=== PATIENT | male | born 1960 | race Caucasian/White ===

== ENCOUNTER → 2016-10-31 | Outpatient (CLI) | payer OTHER ==
[2015-06-27 20:22] VITALS: BP 140/98
== END ==
LOC: LAB 16:23
DX: M79.605 Pain in left leg (principal)

== ENCOUNTER → 2016-11-03 | Outpatient (CLI) | payer OTHER ==
[2015-06-27 20:22] VITALS: BP 140/98
== END ==
LOC: RAD 10:22
DX: M79.605 Pain in left leg (principal)

== ENCOUNTER → 2016-11-06 | Outpatient (CLI) | payer OTHER ==
[2015-06-27 20:22] VITALS: BP 140/98
== END ==
LOC: RAD 09:10
DX: K40.90 Unilateral inguinal hernia, without obstruction or gangrene, not specified as recurrent (principal)
CPT/HCPCS: Q9967

== ENCOUNTER 2017-04-06 08:24 | Emergency (ER) | payer OTHER ==
[~2017-04-06] VITALS: Ht 172.7 cm; Wt 118.6 kg
[2017-04-06] MEDS ORDERED: CHONDROITIN SU250 M1 (08:38)
[2017-04-06] MEDS ORDERED: DHA PO (08:38)
[2017-04-06] MEDS ORDERED: VITAMIN E100 UNIT (08:38)
[2017-04-06] MEDS ORDERED: CLEOCIN HCL150 M1 PO (08:58)
[2017-04-06] MEDS ORDERED: CLEOCIN HCL300 MG PO (08:58)
[2017-04-06] MEDS ORDERED: NORCO 325 MG-51 TA1 PO (08:58)
[2017-04-06 09:23] VITALS: BP 144/98
== END 2017-04-06 09:26 | disposition home or self-care (01) ==
LOC: ED 08:24
DX: K04.6 Periapical abscess with sinus (principal); F17.200 Nicotine dependence, unspecified, uncomplicated; Z88.0 Allergy status to penicillin

== ENCOUNTER → 2017-09-04 | Outpatient (CLI) | payer OTHER ==
[~2017-09-04] MED LIST: CHONDROITIN SU250 M1; CLEOCIN HCL150 M1 PO; CLEOCIN HCL300 MG PO; DHA PO; NORCO 325 MG-51 TA1 PO; VITAMIN E100 UNIT
== END ==
LOC: RAD 11:08
DX: R59.0 Localized enlarged lymph nodes (principal); R31.9 Hematuria, unspecified

== ENCOUNTER → 2017-10-29 | Outpatient (CLI) | payer OTHER | LOC: RAD 13:08 | DX: M25.551 Pain in right hip (principal) ==

== ENCOUNTER 2018-03-10 13:00 | Outpatient (RCR) | payer OTHER ==
[~2018-03-10 13:00] MED LIST changes: +CARVEDILOL12.5 MG PO; +CEPHALEXIN500 M1 PO; +ECOTRIN325 M1 PO; +LEVITRA20 M1 PO; +MELOXICAM15 MG PO
== END 2018-03-10 13:30 | disposition home or self-care (01) ==
LOC: PT 13:00
DX: Z47.1 Aftercare following joint replacement surgery (principal); Z96.641 Presence of right artificial hip joint

== ENCOUNTER 2018-05-15 23:20 | Emergency (ER) | payer OTHER ==
[~2018-05-15] VITALS: Ht 172.7 cm; Wt 127.3 kg
[2018-05-16 00:33] VITALS: BP 140/95
== END 2018-05-16 00:33 | disposition home or self-care (01) ==
LOC: ED 23:20
DX: S01.01XA Laceration without foreign body of scalp, initial encounter (principal); I10 Essential (primary) hypertension; F17.210 Nicotine dependence, cigarettes, uncomplicated; Z96.651 Presence of right artificial knee joint; W01.190A Fall on same level from slipping, tripping and stumbling with subsequent striking against furniture, initial encounter; Y92.009 Unspecified place in unspecified non-institutional (private) residence as the place of occurrence of the external cause

== ENCOUNTER → 2018-05-17 | Outpatient (CLI) | payer OTHER ==
[2018-05-16 00:33] VITALS: BP 140/95
== END ==
LOC: RAD 12:33
DX: R22.2 Localized swelling, mass and lump, trunk (principal)

== ENCOUNTER 2018-05-26 04:08 | Emergency (ER) | payer OTHER ==
[2018-05-26 04:08] VITALS: BP 160/105
== END 2018-05-26 04:15 | disposition home or self-care (01) ==
LOC: ED 04:08
DX: S09.90XD Unspecified injury of head, subsequent encounter (principal)

== ENCOUNTER 2019-03-04 13:00 | Outpatient (RCR) | payer OTHER | END 2019-03-04 13:30 | disposition still patient (30) | LOC: PT 13:00 | DX: Z47.1 Aftercare following joint replacement surgery (principal); Z96.642 Presence of left artificial hip joint ==

== ENCOUNTER → 2021-05-13 | Outpatient (CLI) | payer OTHER | LOC: RAD 05-10 16:00 | DX: M19.031 Primary osteoarthritis, right wrist (principal); Z98.1 Arthrodesis status ==

== ENCOUNTER → 2021-07-12 | Outpatient (CLI) | payer OTHER | LOC: VAS 14:21 → RAD 14:30 | DX: I77.819 Aortic ectasia, unspecified site (principal) ==